=== PATIENT | female | born 1975 | race Asian ===

== ENCOUNTER 2022-10-18 11:20 | Emergency (ER) | payer BC ==
[~2022-10-18] VITALS: Ht 149.9 cm; Wt 65.9 kg
[2022-10-18 11:46] VITALS: TEMP 98.9
[2022-10-18] MEDS ORDERED: LOSA1TAB40 PO (11:51)
[2022-10-18 14:15] VITALS: BP 144/85; PULSE 83; RESP 16
== END 2022-10-18 14:30 | disposition home or self-care (01) ==
LOC: EMS 11:22
DX: S16.1XXA Strain of muscle, fascia and tendon at neck level, initial encounter (principal); S70.11XA Contusion of right thigh, initial encounter; I10 Essential (primary) hypertension; Z98.890 Other specified postprocedural states; V89.2XXA Person injured in unspecified motor-vehicle accident, traffic, initial encounter; Y93.89 Activity, other specified; Y92.89 Other specified places as the place of occurrence of the external cause; Y99.8 Other external cause status
CPT/HCPCS: 72040; 72070; 72100; 99284; Z7502